=== PATIENT | male | born 1970 | race Caucasian/White ===

== ENCOUNTER 2017-02-09 09:23 | Emergency (ER) | payer BC ==
[~2017-02-09] VITALS: Ht 180.3 cm; Wt 104.5 kg
[2017-02-09 09:27] VITALS: TEMP 98
[2017-02-09] MEDS ORDERED: ZESTRIL 20MG TA20 MG PO (09:30)
[2017-02-09 10:40] LABS: COLLECTION METHOD CLEAN CATCH
[2017-02-09 10:40] LABS: BASO # 0.1 (0.0-0.2); BASO % 0.4 % (0.0-2.0); EOS # 0.1 (0.0-0.7); EOS % 0.4 % (0-4.0); GRAN # 10.4 (1.4-6.5); GRAN % 76.6 % (42.2-75.2); HEMATOCRIT 43.5 % (42.0-52.0); HEMOGLOBIN 14.8 g/dl (13.5-18.0); LYMPH # 1.6 (1.2-3.4); LYMPH % 12.1 % (20.0-51.0); MEAN CELL VOLUME 91 fl (80.0-100.0); MEAN CORPUSCULAR HEMOGLOBIN 31 pg (27.0-31.0); MEAN CORPUSCULAR HGB CONC 34 g/dl (33.0-37.0); MEAN PLATELET VOLUME 10.4 fl (7.4-10.4); MONO # 1.4 (0.1-0.6); MONO % 10.1 % (1.7-9.3); PLATELET COUNT 235 K/mm3 (130-400); WHITE BLOOD COUNT 13.6 K/mm3 (4.8-10.8)
[2017-02-09 10:59] LABS: MUCOUS Present /lpf; PH 5 (5-8); SQUAMOUS EPITHELIAL None Seen /hpf; URINE APPEARANCE Hazy; URINE BACTERIA None Seen /hpf; URINE BILIRUBIN Negative (NEGATIVE); URINE BLOOD Negative (NEGATIVE); URINE COLOR Yellow; URINE GLUCOSE Negative (NEGATIVE); URINE KETONE Trace (NEGATIVE); URINE LEUKOCYTE ESTERASE Negative (NEGATIVE); URINE PROTEIN(semi-quant) 1+ (NEGATIVE); URINE UROBILINOGEN Negative (NEGATIVE); URINE WBC 0-2 /hpf
[2017-02-09 11:07] LABS: ADJUSTED CALCIUM 8.7 mg/dL (8.4-10.2); ALBUMIN 4.7 gm/dL (3.5-5.0); BILIRUBIN,TOTAL 1.4 mg/dL (0.0-1.0); CALCIUM 9.3 mg/dL (8.4-10.2); CREATININE, serum 1.65 mg/dL (0.66-1.25); TOTAL PROTEIN 8.3 gm/dL (6.4-8.2)
[2017-02-09] MEDS ORDERED: VOLTAREN 75 DR75 MG PO (12:40)
[2017-02-09] MEDS ORDERED: ZOFRAN ODT4 MG PO (12:40)
[2017-02-09] MEDS ORDERED: NORCO 325 MG-51 TAB PO (12:40)
[2017-02-09 13:05] VITALS: BP 155/99; PULSE 61
== END 2017-02-09 13:05 | disposition home or self-care (01) ==
LOC: COL.ER 09:23
PROVIDERS: Emergency Medicine
DX: N20.1 Calculus of ureter (principal); I10 Essential (primary) hypertension
CPT/HCPCS: J2765; J3010; J7050; J7120; Q9967

== ENCOUNTER → 2019-01-16 | Outpatient (CLI) | payer BC ==
[~2019-01-16] MED LIST: NORCO 325 MG-51 TAB PO; VOLTAREN 75 DR75 MG PO; ZESTRIL 20MG TA20 MG PO; ZOFRAN ODT4 MG PO
== END ==
LOC: COL.RAD 06:41
DX: M19.011 Primary osteoarthritis, right shoulder (principal); M89.8X1 Other specified disorders of bone, shoulder; G89.29 Other chronic pain